=== PATIENT | female | born 1945 | race Caucasian/White ===

== ENCOUNTER → 2017-08-25 | Outpatient (CLI) | payer MEDICARE ==
--- NOTE | 2017-08-25 17:03 | BD ---
EXAMINATION TYPE: Axial Bone Density DATE OF EXAM: 08/25/2017 COMPARISON: 2016 CLINICAL HISTORY: 72-year-old female post menopausal without HRT Height: 5'5 Weight: 133 FRAX RISK QUESTIONS: History of Fracture in Adulthood: y Secondary Osteoporosis: RISK FACTORS HISTORY OF: Postmenopausal woman: MEDICATIONS: Additional Medications: Additional History: EXAM MEASUREMENTS: Bone mineral densitometry was performed using the [employer] System. Bone mineral density as measured about the Lumbar spine is: ----- L1-L4(G/cm2): 0.993 T Score Values are as follows: ----- L2: -1.2 ----- L3: -1.4 ----- L4: -2.7 ----- L1-L4: -1.6 Bone mineral density has: Decreased -1.5% since study of: 05/29/2015 Bone mineral density about the R hip (g/cm2): 0.761 Bone mineral density about the L hip (g/cm2): 0.693 T Score values are as follows: -----R Neck: -2.0 -----L Neck: -2.5 -----R Total: -0.8 -----L Total: -1.2 Bone mineral density has: Increased 0.1% since study of: 05/29/2015 IMPRESSION: Osteoporosis (T Score less than -2.5). There is increased fracture risk and therapy is usually indicated based on age. Re-Screen 1-2 years. NOTE: T-SCORE=SD OF THE YOUNG ADULT MEAN.
--- NOTE | 2017-08-27 10:16 | MM ---
Reason for exam: screening (asymptomatic). Last mammogram was performed 2 years and 3 months ago. History: Patient is postmenopausal. Took estrogen for 1 year 3 months. Physical Findings: A clinical breast exam by your physician is recommended on an annual basis and results should be correlated with mammographic findings. MG 3D Screening Mammo W/Cad Bilateral CC and MLO view(s) were taken. Prior study comparison: May 29, 2015, bilateral MG screening mammo w CAD. December 17, 2013, bilateral MG screening mammo w CAD. The breast tissue is heterogeneously dense. This may lower the sensitivity of mammography. No significant changes when compared with prior studies. ASSESSMENT: Benign, BI-RAD 2 RECOMMENDATION: Routine screening mammogram of both breasts in 1 year. Manage on a clinical basis with regard toright breast pain.
== END | disposition home or self-care (01) ==
LOC: RADMAMWWP 13:56
PROVIDERS: ATTEND Internal Medicine
DX: Z12.31 Encounter for screening mammogram for malignant neoplasm of breast (principal); M81.0 Age-related osteoporosis without current pathological fracture; Z78.0 Asymptomatic menopausal state
CPT/HCPCS: 77063; 77067; 77080

== ENCOUNTER → 2018-10-29 | Outpatient (CLI) | payer MEDICARE ==
--- NOTE | 2018-10-29 12:32 | MM ---
Reason for exam: screening (asymptomatic). Last mammogram was performed 1 year and 2 months ago. History: Patient is postmenopausal. Took estrogen for 1 year 3 months. Physical Findings: A clinical breast exam by your physician is recommended on an annual basis and results should be correlated with mammographic findings. MG 3D Screening Mammo W/Cad Bilateral CC and MLO view(s) were taken. Prior study comparison: August 25, 2017, bilateral MG 3d screening mammo w/cad. May 29, 2015, bilateral MG screening mammo w CAD. The breast tissue is heterogeneously dense. This may lower the sensitivity of mammography. There are benign vascular calcifications. No suspicious abnormality. No significant changes when compared with prior studies. ASSESSMENT: Benign, BI-RAD 2 RECOMMENDATION: Routine screening mammogram of both breasts in 1 year.
== END | disposition home or self-care (01) ==
LOC: RADMAMWWP 09:14
PROVIDERS: ATTEND Internal Medicine
DX: Z12.31 Encounter for screening mammogram for malignant neoplasm of breast (principal)
CPT/HCPCS: 77063; 77067

== ENCOUNTER → 2020-03-07 | Outpatient (CLI) | payer MEDICARE ==
--- NOTE | 2020-03-07 15:25 | BD ---
EXAMINATION TYPE: Axial Bone Density DATE OF EXAM: 03/07/2020 COMPARISON: 08/25/2017 CLINICAL HISTORY: Height: 64.5 IN Weight: 131 LBS FRAX RISK QUESTIONS: History of Fracture in Adulthood: LT SHOULDER AGE 73 RISK FACTORS HISTORY OF: Family History of Osteoporosis: YES SISTER Active: YES Diet low in dairy products/other sources of calcium: YES Postmenopausal woman: AGE 49 Take estrogen and/or progesterone medications: NOT NOW How long: TOOK AT AGE 49 FOR 6 MONTHS MEDICATIONS: Additional Medications: VIT D, MULTI VIT, ZERTEC EXAM MEASUREMENTS: Bone mineral densitometry was performed using the [employer] System. Bone mineral density as measured about the Lumbar spine is: ----- L1-L4(G/cm2): 0.985 T Score Values are as follows: ----- L2: -1.4 ----- L3: -1.7 ----- L4: -2.2 ----- L1-L4: -1.6 Bone mineral density has: Decreased -0.2% since study of: 08/25/2017 Bone mineral density about the R hip (g/cm2): 0.739 Bone mineral density about the L hip (g/cm2): 0.676 T Score values are as follows: -----R Neck: -2.1 -----L Neck: -2.6 -----R Total: -0.9 -----L Total: -1.2 Bone mineral density has: Decreased -1.1% since study of: 08/25/2017 IMPRESSION: Osteopenia (T Score between -2.5 and -1). There is slightly increased risk of fracture and the patient may be considered for treatment. Re-Screen 2-5 years. NOTE: T-SCORE=SD OF THE YOUNG ADULT MEAN.
--- NOTE | 2020-03-08 13:41 | MM ---
Reason for exam: screening (asymptomatic). Last mammogram was performed 1 year and 4 months ago. History: Patient is postmenopausal. Took estrogen for 1 year 3 months. Physical Findings: A clinical breast exam by your physician is recommended on an annual basis and results should be correlated with mammographic findings. MG 3D Screening Mammo W/Cad Bilateral CC and MLO view(s) were taken. Prior study comparison: October 29, 2018, bilateral MG 3d screening mammo w/cad. August 25, 2017, bilateral MG 3d screening mammo w/cad. The breast tissue is heterogeneously dense. This may lower the sensitivity of mammography. Vague focal asymmetric density central left MLO view has no clear correlate on the CC view and had the same appearance on the 2018 exam. As it was not seen in 2019, a precautionary 6 month follow up is recommended. No significant changes when compared with prior studies. ASSESSMENT: Probably benign, BI-RAD 3 RECOMMENDATION: Follow-up diagnostic mammogram of the left breast in 6 months. (3D)
== END | disposition home or self-care (01) ==
LOC: RADMAMWWP 14:30
PROVIDERS: ATTEND Internal Medicine
DX: Z12.31 Encounter for screening mammogram for malignant neoplasm of breast (principal); M85.80 Other specified disorders of bone density and structure, unspecified site
CPT/HCPCS: 77063; 77067; 77080

== ENCOUNTER → 2020-12-05 | Outpatient (CLI) | payer MEDICARE ==
--- NOTE | 2020-12-05 11:54 | MM ---
Reason for exam: follow-up at short interval from prior study. Last mammogram was performed 9 months ago. History: Patient is postmenopausal. Took estrogen for 1 year 3 months. Physical Findings: Nurse did not find any significant physical abnormalities on exam. MG 3D Diag Mammo W/Cad LT CC, MLO, and XCCM view(s) were taken of the left breast. Prior study comparison: March 07, 2020, bilateral MG 3d screening mammo w/cad. October 29, 2018, bilateral MG 3d screening mammo w/cad. The breast tissue is heterogeneously dense. This may lower the sensitivity of mammography. There is no discrete abnormality including area of concern on left MLO. No significant new findings when compared with previous films. These results were verbally communicated with the patient and result sheet given to the patient on 12/05/20. ASSESSMENT: Benign, BI-RAD 2 RECOMMENDATION: Return to routine screening mammogram schedule for both breasts. Back on schedule.
== END | disposition home or self-care (01) ==
LOC: RADMAMWWP 10:55
PROVIDERS: ATTEND Internal Medicine
DX: R92.2 Inconclusive mammogram (principal); Z78.0 Asymptomatic menopausal state; Z79.818 Long term (current) use of other agents affecting estrogen receptors and estrogen levels
CPT/HCPCS: 77065; G0279; 77061

== ENCOUNTER → 2022-07-02 | Outpatient (CLI) | payer MEDICARE ==
[2022-07-02 11:45] LABS: INR 1.1 (<1.2); Partial Thromboplastin Time 27.2 sec (22.0-30.0); Prothrombin Time 11.5 sec (9.0-12.0)
[2022-07-02 18:11] LABS: Basophils # (A) 0.06 X 10*3/uL (0.00-0.10); Basophils % (A) 0.7 %; Eosinophils # (A) 0.11 X 10*3/uL (0.04-0.35); Eosinophils % (A) 1.3 %; HCT 42.9 % (37.2-46.3); HGB 13.1 g/dL (12.0-15.0); Immature Grans, Automated 0.5 %; Lymphocytes # (A) 1.12 X 10*3/uL (0.90-5.00); Lymphocytes % (A) 13.6 %; MCH 28.5 pg (27.0-32.0); MCHC 30.5 g/dL (32.0-37.0); MCV 93.5 fL (80.0-97.0); Monocytes # (A) 0.74 X 10*3/uL (0.20-1.00); NRBC Per 100 WBC 0 /100 WBCS (0.0-0.0); Neutrophils # (A) 6.19 X 10*3/uL (1.80-7.70); Neutrophils % (A) 74.9 %; Platelet Count 178 X 10*3/uL (140-440); RBC 4.59 X 10*6/uL (4.10-5.20); RDW 14.6 % (11.5-14.5); WBC 8.26 X 10*3/uL (4.50-10.00)
[2022-07-02 18:29] LABS: African American GFR (CKD) 81.8 (60.0-200.0); Albumin 4.2 g/dL (3.8-4.9); Albumin/Globulin Ratio 1.45 (1.60-3.17); BUN/Creat Ratio 25.63 Ratio (12.00-20.00); Blood Urea Nitrogen 20.5 mg/dL (9.0-27.0); Globulin 2.9 g/dL (1.6-3.3); Non-African American GFR(CKD) 70.6 (60.0-200.0); Potassium 4.6 mmol/L (3.5-5.5); Total Protein 7.1 g/dL (6.2-8.2)
== END | disposition home or self-care (01) ==
LOC: LABWHC1 10:27
PROVIDERS: ATTEND Internal Medicine Critical Care Medicine
DX: R16.0 Hepatomegaly, not elsewhere classified (principal); Z79.899 Other long term (current) drug therapy
CPT/HCPCS: 36415; 80053; 85025; 85610; 85730

== ENCOUNTER 2022-07-11 08:30 | Day surgery (SDC) | payer MEDICARE ==
[2022-07-11] MEDS ORDERED: ALPRAZolam 0.25 MG TAB PO STA (09:05)
[2022-07-11 09:09] VITALS: RESP 16; TEMP 97.5
[2022-07-11 09:20] LABS: Mean Platelet Volume 8.4; Platelet Count 263 k/uL (150-450)
[2022-07-11] MEDS ORDERED: MICROFIBRILLAR COLLAGEN HEMOST 0.5 GM PACK TOPICAL ONE ×2 (09:25→12:03)
[2022-07-11 09:38] LABS: Prothrombin Time 10.7 sec (9.0-12.0)
[2022-07-11] MEDS ORDERED: HYDROmorphone 0.5 MG/0.5 ML SYRINGE IVP STA ×2 (10:05→11:00)
--- NOTE | 2022-07-11 11:32 | US ---
EXAMINATION TYPE: US biopsy liver DATE OF EXAM: 07/11/2022 COMPARISON: NONE HISTORY: Liver mass The procedure was explained to the patient. The risks, complications, benefits, and alternatives wer e discussed and any questions were answered. Informed consent was obtained. Patient was placed supi ne on the CT table and prepped and draped in the usual sterile fashion. All elements of maximal barrier and sterile technique utilized. Utilizing ultrasound guidance, a 22-gauge left lobe liver FNA was obtained with pathology confirming adequate specimen. Subsequently An 18 gauge core biopsy was obtained.. The patient was stable throug hout the procedure and remained stable upon discharge. IMPRESSION: 1. Successful 18 gauge FNA\core biopsy of the liver.
[2022-07-11 14:00] VITALS: PULSE 84
[2022-07-11 14:53] VITALS: BP 127/72
== END 2022-07-11 14:29 | disposition home or self-care (01) ==
LOC: RADPROMAIN 08:30
PROVIDERS: ATTEND Internal Medicine Critical Care Medicine
DX: K76.9 Liver disease, unspecified (principal); R16.0 Hepatomegaly, not elsewhere classified
CPT/HCPCS: 85049; 85610; 47000; 76942; J1170; 88173; 88305; 88307

== ENCOUNTER → 2022-09-20 | Outpatient (CLI) | payer MEDICARE ==
--- NOTE | 2022-09-20 22:28 | MR ---
EXAMINATION TYPE: MR brain wo/w con DATE OF EXAM: 09/20/2022 7:55 PM CLINICAL INDICATION:Female, 77 years old with history of C34.90; HX OF LUNG CA COMPARISON: None TECHNIQUE: Multi planar, multi sequence imaging was performed through the brain including: T1, T2, In version recovery, susceptibility weighted imaging and gradient echo imaging and Diffusion weighted im aging. The patient was then given intravenous contrast and multi planar, T1 fat-saturation images wer e obtained. IV Contrast: 5ML cc Gadavist FINDINGS: Generalized cerebral atrophy changes with proportional dilation to the ventricles. The gallego-white junctions, ventricular system, basal cisterns appear unremarkable. Diffusion-weighted imaging shows no evidence of restricted diffusion to suggest acute/subacute infarct. Intracranial art erial flow voids are maintained. Midline structures show no abnormality. Minimal scattered foci of hi gh T2 signal intensity are seen within the periventricular white matter. The susceptibility weighted images do not reveal any evidence for micro-hemorrhage. 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 After administration of gadolinium, no abnorm al enhancement is seen. The bone marrow signal is within normal limits. Paranasal sinuses and mastoid air cells: No significant paranasal sinus disease. Visualized orbits: Orbital contents are intact. IMPRESSION: 1. No evidence of intracranial mass, acute/subacute infarct, or abnormal enhancement. No evidence for metastatic disease to the brain at this time. 2. Minimal nonspecific white matter changes, likely related to small vessel ischemic disease
== END | disposition home or self-care (01) ==
LOC: RADMRIMAIN 17:54
PROVIDERS: ATTEND Internal Medicine Hematology & Oncology
DX: C34.90 Malignant neoplasm of unspecified part of unspecified bronchus or lung (principal); R90.82 White matter disease, unspecified; Z85.118 Personal history of other malignant neoplasm of bronchus and lung
CPT/HCPCS: 70553; A9585

== ENCOUNTER → 2022-12-24 | Outpatient (CLI) | payer MEDICARE ==
--- NOTE | 2022-12-24 21:14 | US ---
EXAMINATION TYPE: US carotid duplex BILAT DATE OF EXAM: 12/24/2022 COMPARISON: NONE CLINICAL INDICATION: Female, 77 years old with history of I65.23 Carotid stenosis bilateral; TECHNIQUE: Carotid duplex ultrasound examination. Indirect Doppler criteria was utilized. 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 No evidence of increased velocities IMPRESSION: Atheromatous plaquing without significant flow-limiting stenosis based on velocities. Criteria for Assigning % of Stenosis / Diameter reduction (Estimation based on the indirect measurements of the internal carotid artery velocities (ICA PSV). 1. Normal (no stenosis)=ICA PSV < 125 cm/s: ratio < 2.0: ICA EDV<40 cm/s. 2. Less than 50% stenosis=ICA PSV < 125 cm/s: ratio < 2.0: ICA EDV<40 cm/s. 3. 50 to 69% stenosis=ICA PSV of 125 to 230 cm/s: ration 2.0 ? 4.0: ICA EDV 40-100 cm/s. 4. Greater than 70% stenosis to near occlusion= ICA PSV > 230 cm/s: ratio > 4.0: ICA EDV > 100 cm/s. 5. Near occlusion= ICA PSV velocities may be low or undetectable: variable ratio and ICA EDV. 6. Total occlusion=unable to detect flow.
--- NOTE | 2022-12-25 09:37 | CA ---
Transthoracic Echo Report Name: Mary Frances Age: 77 Gender: F : 1945 Exam Date: 12/24/2022 14:35 Exam Location: [facility] Ht (in): 64 Wt (lb): 114 Ordering Physician: Macie Ramsey MD Attending/Referring Phys: Intern Product Marketing Manager Sylwia Bond RDCS Procedure CPT: Indications: I34.0 MITRAL VALVE INSUFF, I65.23 STENOSIS Cardiac Hx: Technical Quality: Fair Contrast 1: Total Dose (mL): Contrast 2: Total Dose (mL): MEASUREMENTS (Male / Female) Normal Values 2D ECHO LV Diastolic Diameter PLAX 3.1 cm 4.2 - 5.9 / 3.9 - 5.3 cm LV Systolic Diameter PLAX 2.0 cm IVS Diastolic Thickness 0.9 cm 0.6 - 1.0 / 0.6 - 0.9 cm LVPW Diastolic Thickness 0.9 cm 0.6 - 1.0 / 0.6 - 0.9 cm LV Relative Wall Thickness 0.6 M-MODE Aortic Root Diameter MM 3.1 cm LA Systolic Diameter MM 2.8 cm LA Ao Ratio MM 0.9 AV Cusp Separation MM 1.3 cm DOPPLER AV Peak Velocity 131.5 cm/s AV Peak Gradient 6.9 mmHg AV Mean Velocity 99.4 cm/s AV Mean Gradient 4.1 mmHg AV Velocity Time Integral 34.4 cm LVOT Peak Velocity 73.2 cm/s LVOT Peak Gradient 2.1 mmHg LVOT Velocity Time Integral 12.3 cm MV Area PHT 2.9 cm??? Mitral E Point Velocity 52.5 cm/s Mitral A Point Velocity 80.7 cm/s Mitral E to A Ratio 0.7 MV Deceleration Time 265.4 ms MV E' Velocity 4.8 cm/s Mitral E to MV E' Ratio 10.9 TR Peak Velocity 210.9 cm/s TR Peak Gradient 17.8 mmHg Right Ventricular Systolic Press 22.4 mmHg FINDINGS Left Ventricle Normal Left ventricular size, wall thickness, systolic function with no obvious regional wall motion abnormalities. Normal Left ventricular diastolic filling pattern. Left ventricular ejection fraction is estimated at 55%. Right Ventricle Normal right ventricular size and function. Right Atrium Normal right atrial size. Left Atrium Normal left atrial size. Mitral Valve Structurally normal mitral valve. No mitral stenosis. Mild mitral regurgitation. Mild mitral annular calcification. Aortic Valve Trileaflet aortic valve. No aortic stenosis. Mild aortic regurgitation. Aortic valve sclerosis. Tricuspid Valve Structurally normal tricuspid valve. Mild tricuspid regurgitation. Pulmonic Valve Trace pulmonic regurgitation. Pericardium No pericardial effusion. Prominent epicardial fat. Aorta Normal size aortic root and proximal ascending aorta. CONCLUSIONS Normal left ventricular ejection fraction 55% Mild mitral regurgitation Mild mitral aortic calcification Mild aortic regurgitation Mild tricuspid regurgitation No pericardial effusion Previewed by: Dr. Morgan Wang DO (Electronically Signed) Final Date: 25 December 2022 09:36
== END | disposition home or self-care (01) ==
LOC: RADECHMAIN 14:25
PROVIDERS: ATTEND Internal Medicine
DX: I65.23 Occlusion and stenosis of bilateral carotid arteries (principal); I34.0 Nonrheumatic mitral (valve) insufficiency
CPT/HCPCS: 93306; 93880

== ENCOUNTER → 2023-02-20 | Outpatient (CLI) | payer MEDICARE ==
--- NOTE | 2023-02-20 11:02 | US ---
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 J anudiced, Nausea and vomiting, Dark urine, and constipation TECHNIQUE: Multiple sonographic images of the abdomen are obtained. 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 Pancreas: wnl Liver: Heterogenous overall - ? new lesion vs remnant of previous cancer lower right liver lobe = 3. 6 x 4.3 x 3.3 cm Gallbladder: Stone seen shadowing out gallbladder Evidence for sonographic Pearl's sign: no CBD: wnl Spleen: wnl Right Kidney: wnl Left Kidney: wnl Upper IVC: wnl Abd Aorta: wnl IMPRESSION: 1. Ill-defined area within the inferior right lobe liver estimated to measure 3.6 x 4.3 x 3.3 cm. Thi s can be reevaluated with CT. Findings likely related to residual hepatic tumor. Extensive less than the comparison CT. 2. Cholelithiasis
== END | disposition home or self-care (01) ==
LOC: RADUSWWP 10:15
PROVIDERS: ATTEND Internal Medicine Hematology & Oncology
DX: C34.90 Malignant neoplasm of unspecified part of unspecified bronchus or lung (principal); I82.5Z9 Chronic embolism and thrombosis of unspecified deep veins of unspecified distal lower extremity; K59.00 Constipation, unspecified; K80.20 Calculus of gallbladder without cholecystitis without obstruction; R11.2 Nausea with vomiting, unspecified; R39.89 Other symptoms and signs involving the genitourinary system; Z85.05 Personal history of malignant neoplasm of liver
CPT/HCPCS: 76700

== ENCOUNTER 2023-03-23 04:04 | Emergency (ER) | payer MEDICARE ==
[2023-03-23] MEDS ORDERED: SODIUM CHLORIDE 0.9% 500 ML 500 ML IV STA (04:18)
[2023-03-23 04:42] LABS: Anisocytosis Slight; Basophils % (A) 0 %; Eosinophils % (A) 0 %; Lymphocytes # (A) 1.2 k/uL (1.0-4.8); Lymphocytes % (A) 19 %; MCH 32.8 pg (25.0-35.0); MCHC 33.8 g/dL (31.0-37.0); MCV 96.8 fL (80.0-100.0); Macrocytosis Slight; Monocytes # (A) 0.2 k/uL (0-1.0); Monocytes % (A) 3 %; Neutrophils % (A) 76 %; Platelet Count 167 k/uL (150-450); RBC 1.91 m/uL (3.80-5.40); RDW 18.2 % (11.5-15.5); WBC 6.5 k/uL (3.8-10.6)
[2023-03-23 04:50] LABS: ALT 144 U/L (4-34); AST 73 U/L (14-36); African American GFR (CKD) >90 (>60 ml/min/1.73 sqM); Albumin 1.8 g/dL (3.5-5.0); Alkaline Phosphatase 337 U/L (38-126); Anion Gap 10 mmol/L; Blood Urea Nitrogen 19 mg/dL (7-17); Calcium 7.2 mg/dL (8.4-10.2); Carbon Dioxide 19 mmol/L (22-30); Chloride 99 mmol/L (98-107); Glucose 169 mg/dL (74-99); Lipase 151 U/L (23-300); Non-African American GFR(CKD) 85 (>60 ml/min/1.73 sqM); Potassium 3.3 mmol/L (3.5-5.1); Sodium 128 mmol/L (137-145); Total Bilirubin 3.5 mg/dL (0.2-1.3); Total Protein 3.9 g/dL (6.3-8.2)
[2023-03-23 05:06] LABS: HCT 18.4 % (34.0-46.0); HGB 6.2 gm/dL (11.4-16.0)
--- NOTE | 2023-03-23 05:16 | ED ---
General Adult HPI - General Chief complaint: Nausea/Vomiting/Diarrhea Stated complaint: Abd Pain Time Seen by Provider: 03/23/23 04:10 Source: EMS Mode of arrival: EMS Limitations: no limitations - History of Present Illness Initial comments: 77-year-old female with past medical history of liver cancer (small cell - possibly metastatic) who presents to the emergency department with hematemesis. Patient has been vomiting blood since 3 PM. Family was unaware of this until she awoke in the middle of the night and attempted to go to the bathroom on her own. She had a syncopal episode where she fell. Family denies that she hit her head and she denies that she has any injuries from the episode. It was at that point that the noted that she had some bright red blood in her mouth and she admitted that she had been throwing up all day. Patient is on Eliquis. She was recently hospitalized at [facility] for this complaints. She was discharged on Friday. 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 She did have several stents placed including a biliary stent, pancreatic stent and transpyloric stents. Family states that her jaundice has improved however her abdomen has become more distended. She admits to generalized abdominal pain for 5 hours. No reported fevers. No other alleviating, precipitating or modifying factors - Related Data Home Medications Medication Instructions Recorded Confirmed Multivitamins, Thera [Multivitamin] 1 tab PO DAILY 11/30/15 07/11/22 Apixaban [Eliquis] 5 mg PO BID 07/05/22 07/11/22 Allergies Allergy/AdvReac Type Severity Reaction Status Date / Time amoxicillin Allergy Rash/Hives Verified 03/23/23 04:12 Review of Systems ROS Statement: Those systems with pertinent positive or pertinent negative responses have been documented in the HPI. ROS Other: All systems not noted in ROS Statement are negative. Past Medical History Past Medical History: Deep Vein Thrombosis (DVT) Additional Past Medical History / Comment(s): broken jaw, fractured ankle, fracture shoulder- no surgery for these History of Any Multi-Drug Resistant Organisms: None Reported Past Surgical History: Tonsillectomy, Tubal Ligation Additional Past Surgical History / Comment(s): Bilat cataracts, colonoscopy, Past Anesthesia/Blood Transfusion Reactions: No Reported Reaction Past Psychological History: No Psychological Hx Reported Smoking Status: Never smoker Past Alcohol Use History: Occasional Past Drug Use History: None Reported - Past Family History Father Family Medical History: Cancer Additional Family Medical History / Comment(s): lung cancer General Exam Limitations: no limitations General appearance: lethargic Head exam: Present: atraumatic, normocephalic, normal inspection Eye exam: Present: scleral icterus ENT exam: Present: mucous membranes dry Neck exam: Present: normal inspection. Absent: tenderness, meningismus, lymphadenopathy Respiratory exam: Present: normal lung sounds bilaterally. Absent: respiratory distress, wheezes, rales, rhonchi, stridor Cardiovascular Exam: Present: tachycardia GI/Abdominal exam: Present: distended, tenderness, guarding Neurological exam: Present: alert, oriented X3 Psychiatric exam: Present: normal affect, normal mood Skin exam: Present: other (jaundice) Course Vital Signs 03/23/23 03/23/23 03/23/23 04:05 05:04 06:00 Temperature 97.8 F Pulse Rate 108 H 111 H 105 H Respiratory 16 16 14 Rate Blood Pressure 97/70 85/53 91/59 O2 Sat by Pulse 100 99 98 Oximetry 03/23/23 03/23/23 06:30 06:43 Temperature 97.5 F L 97.6 F Pulse Rate 103 H 99 Respiratory 16 15 Rate Blood Pressure 85/54 83/54 O2 Sat by Pulse 98 Oximetry Medical Decision Making - Medical Decision Making Was pt. sent in by a medical professional or institution (Dr. PA, DOBBY LOOM CHAIN PEGGER, urgent care, hospital, or alf...) When possible be specific @ -No Did you speak to anyone other than the patient for history (EMS, parent, family, police, friend...)? What history was obtained from this source @ -Spoke with EMS, and daughter Did you review nursing and triage notes (agree or disagree)? Why? @ -I reviewed and agree with nursing and triage notes Were old charts reviewed (outside hosp., previous admission, EMS record, old EKG, old radiological studies, urgent care reports/EKG's, alf records)? Report findings @ -I reviewed patient's chart from [facility] Differential Diagnosis (chest pain, altered mental status, abdominal pain women, abdominal pain men, vaginal bleeding, weakness, fever, dyspnea, syncope, headache, dizziness, GI bleed, back pain, seizure, CVA, palpatations, mental health, musculoskeletal)? @ -Differential GI Bleed: Esophageal varices, aortoenteric fistula, Melinda-Florez, gastritis, peptic ulcer disease, diverticulosis, inflammatory bowel disease, hemorrhoids, fissure, colitis, malignancy, Meckels diverticulum, this is not meant to be an all- inclusive list. EKG interpreted by me (3pts min.). @ -Yes and demonstrates sinus tachycardia with a rate of 106. [place] interval 140. QRS 82. QTC of 393. No acute ST segment elevations or depressions X-rays interpreted by me (1pt min.). @ -None done CT interpreted by me (1pt min.). @ -Yes, interpreted by me. Demonstrates ascites, biliary stents U/S interpreted by me (1pt. min.). @ -None done What testing was considered but not performed or refused? (CT, X-rays, U/S, labs)? Why? @ -None What meds were considered but not given or refused? Why? @ -None Did you discuss the management of the patient with other professionals (professionals i.e. , PA, DOBBY LOOM CHAIN PEGGER, lab, RT, psych nurse, social insurance analyst, guest relations receptionist, teacher, department of natural resources officer, case filler)? Give summary @ -Spoke with Dr. Boateng at [facility] who will accept transfer of the patient Was smoking cessation discussed for >3mins.? @ -No Was critical care preformed (if so, how long)? @ -yes, 35 minutes for transfer blood products Were there social determinants of health that impacted care today? How? (Homelessness, low income, unemployed, alcoholism, drug addiction, transportation, low edu. Level, literacy, decrease access to med. care, half-way, rehab)? @ -No Was there de-escalation of care discussed even if they declined (Discuss DNR or withdrawal of care, Hospice)? DNR status @ -Yes and patient wishes to be no code however family in room is adamant that they want the patient to be a full code What co-morbidities impacted this encounter? (DM, HTN, Smoking, COPD, CAD, Cancer, CVA, ARF, Chemo, Hep., AIDS, mental health diagnosis, sleep apnea, morbid obesity)? @ -Liver cancer Was patient admitted / discharged? Hospital course, mention meds given and route, prescriptions, significant lab abnormalities, going to OR and other pertinent info. @ -Transferred. Upon arrival patient was placed into room 17. A thorough history and physical exam was performed. Patient is able to answer questions appropriately. She appears to be of sound mind and is adamant that she wants to be a no code. Paperwork from [facility] lists that the patient was no code. Family is adamant that they want full care for the patient. She had received 4 of Zofran by EMS. She has no further episodes of vomiting. She does admit to generalized abdominal pain. Two 18-gauge IVs were established. Laboratory studies were conducted. Hemoglobin is 6.2. I did type and cross the patient and transfuse a unit of blood. CT was performed the patient's abdomen which does demonstrate concern for vascular insufficiency to the patient's small bowel. Patient does have IVC clot. Biliary stents in place. I did discuss these results with the family. Recommend that the patient be transferred back to [facility] due to lack of GI capabilities at our facility. They were agreeable to this. Called and spoke with Dr. Boateng who was agreeable to accept transfer the patient. COBRA forms are signed by family and the patient will be transferred within extremely guarded prognosis Undiagnosed new problem with uncertain prognosis? @ -yes Drug Therapy requiring intensive monitoring for toxicity (Heparin, Nitro, Insul in, Cardizem)? @ -blood products Were any procedures done? @ -No Diagnosis/symptom? @ -acute hematemesis, IVC thrombus, hepatic cancer, Eliquis coagulopathy, acute blood loss anemia status post 1 unit PRBC Acute, or Chronic, or Acute on Chronic? @ -Acute Uncomplicated (without systemic symptoms) or Complicated (systemic symptoms)? @ -Complicated Side effects of treatment? @ -No Exacerbation, Progression, or Severe Exacerbation? @ -No Poses a threat to life or bodily function? How? (Chest pain, [place], [place], pneumonia, PE, COPD, DKA, ARF, appy, cholecystitis, CVA, Diverticulitis, Homicidal, Suicidal, threat to staff... and all critical care pts) @ -Yes I do feel that the patient is going to succumb to her diagnosis - Lab Data Result diagrams: 03/23/23 04:31 03/23/23 04:31 Lab Results 1203/23/23 03/23/23 Range/Units 04:20 04:31 04:31 WBC 6.5 (3.8-10.6) k/uL RBC 1.91 L (3.80-5.40) m/uL Hgb 6.2 L* (11.4-16.0) gm/dL Hct 18.4 L* (34.0-46.0) % MCV 96.8 (80.0-100.0) fL MCH 32.8 (25.0-35.0) pg MCHC 33.8 (31.0-37.0) g/dL RDW 18.2 H (11.5-15.5) % Plt Count 167 (150-450) k/uL MPV 9.0 Neutrophils % 76 % Lymphocytes % 19 % Monocytes % 3 % Eosinophils % 0 % Basophils % 0 % Neutrophils # 5.0 (1.3-7.7) k/uL Lymphocytes # 1.2 (1.0-4.8) k/uL Monocytes # 0.2 (0-1.0) k/uL Eosinophils # 0.0 (0-0.7) k/uL Basophils # 0.0 (0-0.2) k/uL Anisocytosis Slight Macrocytosis Slight PT 12.0 (10.0-12.5) sec INR 1.1 (<1.2) APTT 20.6 L (22.0-30.0) sec Sodium (137-145) mmol/L Potassium (3.5-5.1) mmol/L Chloride (98-107) mmol/L Carbon Dioxide (22-30) mmol/L Anion Gap mmol/L BUN (7-17) mg/dL Creatinine (0.52-1.04) mg/dL Est GFR (CKD-EPI)AfAm (>60 ml/min/1.73 sqM) Est GFR (CKD-EPI)NonAf (>60 ml/min/1.73 sqM) Glucose (74-99) mg/dL Lactic Ac Sepsis Rflx Plasma Lactic Acid Kuldeep (0.7-2.0) mmol/L Calcium (8.4-10.2) mg/dL Total Bilirubin (0.2-1.3) mg/dL AST (14-36) U/L ALT (4-34) U/L Alkaline Phosphatase (38-126) U/L Total Protein (6.3-8.2) g/dL Albumin (3.5-5.0) g/dL Lipase (23-300) U/L Blood Type A Negative Blood Type Confirm Blood Type Recheck No Previous Record Bld Type Recheck Status CABO Indicated Antibody Screen NEGATIVE Crossmatch See Detail Spec Expiration Date 03/26/2023 - 231903/23/23 03/23/23 03/23/23 Range/Units 04:31 04:31 04:57 WBC (3.8-10.6) k/uL RBC (3.80-5.40) m/uL Hgb (11.4-16.0) gm/dL Hct (34.0-46.0) % MCV (80.0-100.0) fL MCH (25.0-35.0) pg MCHC (31.0-37.0) g/dL RDW (11.5-15.5) % Plt Count (150-450) k/uL MPV Neutrophils % % Lymphocytes % % Monocytes % % Eosinophils % % Basophils % % Neutrophils # (1.3-7.7) k/uL Lymphocytes # (1.0-4.8) k/uL Monocytes # (0-1.0) k/uL Eosinophils # (0-0.7) k/uL Basophils # (0-0.2) k/uL Anisocytosis Macrocytosis PT (10.0-12.5) sec INR (<1.2) APTT (22.0-30.0) sec Sodium 128 L (137-145) mmol/L Potassium 3.3 L (3.5-5.1) mmol/L Chloride 99 (98-107) mmol/L Carbon Dioxide 19 L (22-30) mmol/L Anion Gap 10 mmol/L BUN 19 H (7-17) mg/dL Creatinine 0.66 (0.52-1.04) mg/dL Est GFR (CKD-EPI)AfAm >90 (>60 ml/min/1.73 sqM) Est GFR (CKD-EPI)NonAf 85 (>60 ml/min/1.73 sqM) Glucose 169 H (74-99) mg/dL Lactic Ac Sepsis Rflx Y Plasma Lactic Acid Kuldeep 5.1 H* (0.7-2.0) mmol/L Calcium 7.2 L (8.4-10.2) mg/dL Total Bilirubin 3.5 H (0.2-1.3) mg/dL AST 73 H (14-36) U/L ALT 144 H (4-34) U/L Alkaline Phosphatase 337 H (38-126) U/L Total Protein 3.9 L (6.3-8.2) g/dL Albumin 1.8 L (3.5-5.0) g/dL Lipase 151 (23-300) U/L Blood Type Blood Type Confirm Blood Type Recheck Bld Type Recheck Status Antibody Screen Crossmatch Spec Expiration Date 03/23/23 Range/Units 05:37 WBC (3.8-10.6) k/uL RBC (3.80-5.40) m/uL Hgb (11.4-16.0) gm/dL Hct (34.0-46.0) % MCV (80.0-100.0) fL MCH (25.0-35.0) pg MCHC (31.0-37.0) g/dL RDW (11.5-15.5) % Plt Count (150-450) k/uL MPV Neutrophils % % Lymphocytes % % Monocytes % % Eosinophils % % Basophils % % Neutrophils # (1.3-7.7) k/uL Lymphocytes # (1.0-4.8) k/uL Monocytes # (0-1.0) k/uL Eosinophils # (0-0.7) k/uL Basophils # (0-0.2) k/uL Anisocytosis Macrocytosis PT (10.0-12.5) sec INR (<1.2) APTT (22.0-30.0) sec Sodium (137-145) mmol/L Potassium (3.5-5.1) mmol/L Chloride (98-107) mmol/L Carbon Dioxide (22-30) mmol/L Anion Gap mmol/L BUN (7-17) mg/dL Creatinine (0.52-1.04) mg/dL Est GFR (CKD-EPI)AfAm (>60 ml/min/1.73 sqM) Est GFR (CKD-EPI)NonAf (>60 ml/min/1.73 sqM) Glucose (74-99) mg/dL Lactic Ac Sepsis Rflx Plasma Lactic Acid Kuldeep (0.7-2.0) mmol/L Calcium (8.4-10.2) mg/dL Total Bilirubin (0.2-1.3) mg/dL AST (14-36) U/L ALT (4-34) U/L Alkaline Phosphatase (38-126) U/L Total Protein (6.3-8.2) g/dL Albumin (3.5-5.0) g/dL Lipase (23-300) U/L Blood Type Blood Type Confirm A Negative Blood Type Recheck Bld Type Recheck Status Antibody Screen Crossmatch Spec Expiration Date Disposition Clinical Impression: Upper GI bleed, Hematochezia, Liver cancer, IVC thrombosis, Anemia Disposition: OTHER INSTITUTION NOT DEFINED Condition: Serious Is patient prescribed a controlled substance at d/c from ED?: No Referrals: Macie Ramsey MD [Primary Care Provider] - 1-2 days Time of Disposition: 07:10 - Out of Hospital Transfer - Req. Specs Out of Hospital Transfer - Requested Specifics: Other Emergency Center ([facility])
[2023-03-23 05:27] LABS: INR 1.1 (<1.2); Partial Thromboplastin Time 20.6 sec (22.0-30.0)
--- NOTE | 2023-03-23 06:41 | CT ---
EXAM: CT Abdomen and Pelvis With Intravenous Contrast CLINICAL HISTORY: ITS.REASON CT Reason: abdominal pain TECHNIQUE: Axial computed tomography images of the abdomen and pelvis with intravenous contrast. CTDI is 14.1 mGy and DLP is 680 mGy-cm. This CT exam was performed using one or more of the following dose reduction techniques: automated exposure control, adjustment of the mA and/or kV according to patient size, and/or use of iterative reconstruction technique. COMPARISON: No relevant prior studies available. FINDINGS: Lung bases: See below. Pleural space: Trace pleural effusions and atelectasis. ABDOMEN: Liver: Multiple right and segment 4 hepatic hypodensities, presumably malignant. Questionable segment 2 involvement. Significant intrahepatic and extrahepatic biliary ductal dilation, with a right hepatic to the duodenal stent in place. Prominent left hepatic duct dilation. Gallbladder and bile ducts: Gallbladder partially obscured. Pancreas: Pancreatic duct stent from the neck to the duodenum. No distal pancreatic ductal dilation. Probable cystic dilation of the uncinate process of the pancreatic duct. Spleen: Unremarkable. No splenomegaly. Adrenals: Unremarkable. No mass. Kidneys and ureters: Unremarkable. No solid mass. No hydronephrosis. Stomach and bowel: Metallic stent from the gastric antrum to the duodenum filled with debris and gas. Moderate distention of the stomach with fluid, more hyperdense component, and gas. Mild submucosal edema suggested. Heterogeneous enhancement of the small bowel wall, with mild small bowel wall thickening. Colonic diverticulosis. PELVIS: Appendix: No findings to suggest acute appendicitis. Bladder: Decompressed bladder. Reproductive: Unremarkable as visualized. ABDOMEN and PELVIS: Intraperitoneal space: Moderate volume ascites. No free air. Bones/joints: No acute fracture. No dislocation. Soft tissues: Diffuse mesenteric edema. Soft tissue edema. Vasculature: Findings suspicious for severe celiac artery stenosis and/or prominent arcuate ligament compression. Atherosclerotic changes. Moderate compression of the portal vein. Poor visualization of the left superior mesenteric artery branch. Approximately 12 mm filling defect within the portal vein (coronal series 202 image 56). No abdominal aortic aneurysm. Lymph nodes: Unremarkable. No enlarged lymph nodes. IMPRESSION: 1. Status post right biliary stent, pancreatic duct stent, and transpyloric Axios stent placement. 2. Excluded left hepatic ductal dilation. 3. Multiple hepatic lesions suspicious for metastatic disease. 4. Mesenteric and soft tissue edema with moderate volume ascites and secondary sympathetic pleural effusions. 5. 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 6. Heterogeneous enhancement of the small bowel, suspect arterial or venous mesenteric vascular insufficiency, probably associated with tumoral invasion of the portal vein.
[2023-03-23] MEDS ORDERED: PANTOPRAZOLE 40 MG/10 ML VIAL IVP ONE (07:07)
[2023-03-23 07:25] VITALS: RESP 14; TEMP 97.5
[2023-03-23 07:48] VITALS: BP 76/50; PULSE 101
== END 2023-03-23 07:30 | disposition other institution (70) ==
LOC: EC 04:04
DX: K92.2 Gastrointestinal hemorrhage, unspecified (principal); C22.0 Liver cell carcinoma; D64.9 Anemia, unspecified; K92.1 Melena; I82.220 Acute embolism and thrombosis of inferior vena cava; Z86.718 Personal history of other venous thrombosis and embolism; Z88.0 Allergy status to penicillin; Z79.01 Long term (current) use of anticoagulants; Z79.899 Other long term (current) drug therapy
CPT/HCPCS: 36415; 93005; 86900; 86901; 80053; 83605; 83690; 85025; 85610; 85730; 86850; 86920; 74177; 99291; 96374; 36430; P9016; C9113; Q9967